=== PATIENT | female | born 1950 | race Caucasian/White ===

== ENCOUNTER 2017-09-21 23:58 | Emergency (ER) | payer MEDICARE, OTHER ==
[2017-09-22 00:07] VITALS: BP 159/82
[2017-09-22] MEDS ORDERED: LORazepam 2 MG/ML SDV IM ONE (00:37)
--- NOTE | 2017-09-22 00:45 | EDM.PDOC ---
ED HPI GENERAL MEDICAL PROBLEM - General Chief Complaint: General Stated Complaint: shaky, congested, headache Time Seen by Provider: 09/22/17 00:27 Source of Information: Reports: Patient, RN, RN Notes Reviewed History Limitations: Reports: No Limitations - History of Present Illness INITIAL COMMENTS - FREE TEXT/NARRATIVE: Patient presents to the ED at [facility] with increased worsening of essential tremors, headache, and sinus congestion. She states she has been on Primidone for a long time and is at the max dose. She states it does not feel like the Primidone is working anymore. She feels "more warm" than usual. She states she used some nasal spray for her "plugged sinuses." Otherwise, no concerns. Duration: Chronic Headache Pain Score (Numeric/FACES): 8 - Related Data Allergies Allergy/AdvReac Type Severity Reaction Status Date / Time lisinopril Allergy Cough Verified 09/22/17 00:00 Home Meds: Home Meds Aspirin [Iris Chewable Aspirin] 81 mg PO DAILY 10/02/15 [History] Primidone [Mysoline] 300 mg PO TID 10/02/15 [History] atorvaSTATin [Lipitor] 20 mg PO BEDTIME 10/02/15 [History] Ascorbic Acid [C Complex] 1,000 mg PO DAILY 01/06/16 [History] Calcium Carb/Vit D3/Minerals [Calcium 600+D Plus Minerals] 1 tab PO DAILY [History] Cholecalciferol (Vitamin D3) [Vitamin D3] 2,000 units PO DAILY 01/06/16 [History ] Fish Oil/[place]-3 Fatty Acids [Fish Oil 1,000 MG] 1,000 mg PO DAILY 01/06/16 [ History] LORazepam [Ativan] 0.5 mg PO TID PRN 01/06/16 [History] Losartan [Cozaar] 50 mg PO DAILY 01/06/16 [History] Lutein 20 mg DAILY 01/06/16 [History] Multivit-Min/Iron Fum/Folic AC [[place]k-Forkxmd-Dtjwsuvh Tablet] 1 tab PO DAILY [History] Tetrahydrozoline HCl [Visine] 1 drop EYEBOTH Q4H PRN 01/06/16 [History] Venlafaxine HCl [Venlafaxine ER] 75 mg PO DAILY 01/06/16 [History] metFORMIN [Glucophage] 2,000 mg PO DAILY 09/22/17 [History] Past Medical History HEENT History: Reports: Cataract Other HEENT History: lingual tonsil hypertrophy. presbyopia. astigmatism. hypermetropia Cardiovascular History: Reports: High Cholesterol, Hypertension Other Cardiovascular History: hypertensive heart disease without heart failure. ASCVD Respiratory History: Reports: COPD Gastrointestinal History: Reports: GERD, Irritable Bowel Syndrome Musculoskeletal History: Reports: Arthritis Other Musculoskeletal History: ulnar neuropathy at elbow of right upper extremity. cubital tunnel syndrome Neurological History: Reports: Neuropathy, Diabetic Other Neuro History: essential tremor. restless leg syndrome. R median nerve neuropathy Psychiatric History: Reports: Anxiety, Depression Other Psychiatric History: panic disorder without agoraphobia Endocrine/Metabolic History: Reports: Diabetes, Type II - Past Surgical History GI Surgical History: Reports: Cholecystectomy Female Surgical History: Reports: Breast Reduction, Section Musculoskeletal Surgical History: Reports: Carpal Tunnel Social & Family History - Tobacco Use Smoking Status *Q: Former Smoker Used Tobacco, but Quit: Yes Month/Year Tobacco Last Used: 7 years ago - Caffeine Use Caffeine Use: Reports: None ED ROS GENERAL - Review of Systems Review Of Systems: See Below Constitutional: Denies: Fever, Chills, Weakness Respiratory: Denies: Shortness of Breath, Cough Cardiovascular: Denies: Chest Pain, Palpitations Musculoskeletal: Denies: Muscle Pain, Muscle Stiffness Skin: Reports: No Symptoms Neurological: Reports: Headache, Tremors. Denies: Numbness, Paresthesia, Tingling ED EXAM, GENERAL - Physical Exam Exam: See Below Exam Limited By: No Limitations General Appearance: Alert, No Apparent Distress Nose: Normal Inspection Head: Atraumatic, Normocephalic Respiratory/Chest: No Respiratory Distress, Lungs Clear, Normal Breath Sounds Cardiovascular: Normal Peripheral Pulses, Regular Rate, Rhythm Neurological: Alert, Oriented, Normal Cognition Skin Exam: Warm, Dry, Intact, Normal Color Course - Vital Signs Last Recorded V/S: Last Vital Signs Temp 35.9 C 09/22/17 00:01 Pulse 76 09/22/17 00:01 Resp 20 09/22/17 00:01 BP 159/82 H 09/22/17 00:01 Pulse Ox 97 09/22/17 00:01 - Orders/Labs/Meds Meds: Medications Discontinued Medications Generic Name Dose Route Start Last Admin Trade Name Freq PRN Reason Stop Dose Admin Lorazepam 2 mg 09/22/17 00:37 Ativan IM 09/22/17 00:38 STAT ONE Departure - Departure Time of Disposition: 00:45 Disposition: Home, Self-Care 01 Condition: Good Clinical Impression: Tremors of nervous system - Discharge Information *PRESCRIPTION DRUG MONITORING PROGRAM REVIEWED*: Not Applicable *COPY OF PRESCRIPTION DRUG MONITORING REPORT IN PATIENT OLGA: Not Applicable Instructions: Tremor Referrals: Marci Hendricks MD [Physician] - - Problem List Review Problem List Initiated/Reviewed/Updated: Yes - Assessment/Plan Assessment:: Tremors Plan: No acute emergency appreciated in this case. Patient seems to be bother by her tremors and feels she can not get them under control. Recommend she make an appointment to see Dr. Marci Hendricks. No changes with medications at this time.
== END 2017-09-22 00:55 | disposition home or self-care (01) ==
LOC: VM.ED 23:58
DX: R25.1 Tremor, unspecified (principal); E78.00 Pure hypercholesterolemia, unspecified; I11.0 Hypertensive heart disease with heart failure; I50.9 Heart failure, unspecified; J44.9 Chronic obstructive pulmonary disease, unspecified; F32.9 Major depressive disorder, single episode, unspecified; E11.9 Type 2 diabetes mellitus without complications; F41.9 Anxiety disorder, unspecified; Z88.8 Allergy status to other drugs, medicaments and biological substances; Z79.899 Other long term (current) drug therapy; Z79.82 Long term (current) use of aspirin; Z87.891 Personal history of nicotine dependence
CPT/HCPCS: 96372; 99283; J2060

== ENCOUNTER 2020-08-13 09:12 | Emergency (ER) | payer MEDICARE, OTHER ==
[2020-08-13] MEDS ORDERED: Ondansetron 4 MG/2 ML SDV IVPUSH ONE (09:36)
[2020-08-13] MEDS ORDERED: Acetaminophen 325 MG Tab PO ONE (09:46)
--- NOTE | 2020-08-13 09:46 | EDM.PDOC ---
ED HPI GENERAL MEDICAL PROBLEM - General Chief Complaint: Headache Stated Complaint: headache/dizziness Time Seen by Provider: 08/13/20 09:20 Source of Information: Reports: Patient History Limitations: Reports: No Limitations - History of Present Illness INITIAL COMMENTS - FREE TEXT/NARRATIVE: Alise is a 70 year old female who presents to ER with complaints of dizziness, headache and nausea. States awoke this am with the dizziness. Describes as a nauseating feeling that worsens with lying down. She has a dull throbbing headache that rates at a 9/10. After resting here, with my evaluation, dizziness is gone but nausea and headache are still present. Has had dizziness like this in the past, happened 6 months ago. Treated with an antinausea pill. Did try that this am but did not give much relief. Has been feeling short of breath for 2 months. States has had a chest xray and "lung tests" that were negative. Also has diabetes. Takes metformin at bedtime. Did note diaphoresis this am and thought possibly related to her diabetes so she ate a peach. Did not check her blood sugar at that time. Also has history of tremors. Had a deep brain stimulator put in and the tremors are now gone. Onset: Today, Sudden Duration: Minutes:, Hour(s):, Waxing/Waning Location: Reports: Head Quality: Reports: Ache Severity: Severe Improves with: Reports: Rest Associated Symptoms: Reports: Malaise, Nausea/Vomiting, Shortness of Breath. Denies: Confusion, Chest Pain, Cough, Fever/Chills, Loss of Appetite Treatments JOB RECRUITER: Reports: Other Medication(s) Other Treatments JOB RECRUITER: anti-nausea med - Related Data Allergies Allergy/AdvReac Type Severity Reaction Status Date / Time gabapentin Allergy Dizziness Verified 08/13/20 10:49 lisinopril Allergy Cough Verified 08/13/20 10:49 Home Meds: Home Meds Aspirin [Iris Chewable Aspirin] 81 mg PO BEDTIME 10/02/15 [History] Primidone [Mysoline] 150 mg PO TID 10/02/15 [History] Calcium Carb/Vit D3/Minerals [Calcium 600+D Plus Minerals] 1 tab PO BIDMEALS 01/06/16 [History] Cholecalciferol (Vitamin D3) [Vitamin D3] 2,000 units PO DAILY 01/06/16 [History] Lutein 20 mg PO Q48H 01/06/16 [History] Multivit-Min/Iron Fum/Folic AC [Scfgu-Fjbdokf-Lqjqyxxr Tablet] 1 tab PO DAILY 01/06/16 [History] Venlafaxine HCl [Venlafaxine ER] 187.5 mg PO DAILY 01/06/16 [History] metFORMIN [Glucophage] 2,000 mg PO DAILY 09/22/17 [History] Alendronate Sodium [Fosamax] 70 mg PO ASDIRECTED 06/22/20 [History] Ascorbate Calcium [Vitamin C] 500 mg PO DAILY 06/22/20 [History] Cyanocobalamin (Vitamin B-12) [Vitamin B-12] 100 mcg PO DAILY 06/22/20 [History] Losartan [Cozaar] 12.5 mg PO DAILY 06/22/20 [History] Petrolatum,White [Aquaphor with Natural Healing] 1 applic TP QID PRN 06/22/20 [History] Turmeric 800 mg PO BEDTIME 06/22/20 [History] atorvaSTATin [Lipitor] 40 mg PO BEDTIME 06/22/20 [History] carvediloL [Coreg] 6.25 mg PO BID 06/22/20 [History] estradioL [Estrace Vaginal] 2 g VAG ASDIRECTED 06/22/20 [History] glipiZIDE [Glipizide ER] 5 mg PO DAILY 06/22/20 [History] oxyCODONE 5 - 10 mg PO Q6H PRN 06/22/20 [History] Past Medical History HEENT History: Reports: Cataract Other HEENT History: lingual tonsil hypertrophy. presbyopia. astigmatism. hypermetropia Cardiovascular History: Reports: High Cholesterol, Hypertension Other Cardiovascular History: hypertensive heart disease without heart failure. aneurysm. ASCVD Respiratory History: Reports: COPD Gastrointestinal History: Reports: GERD, Irritable Bowel Syndrome Genitourinary History: Reports: Other (See Below) Other Genitourinary History: acute kidney injury Musculoskeletal History: Reports: Arthritis, Fracture, Osteoarthritis, Osteoporosis Other Musculoskeletal History: ulnar neuropathy at elbow of right upper extremity. cubital tunnel syndrome. radial styloid tenosynovitis of right hand. trigger middle finger of right hand. 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 compression fracture of body of thoracic vertebra Neurological History: Reports: Neuropathy, Diabetic Other Neuro History: essential tremor. restless leg syndrome. R median nerve neuropathy. insomnia. right median nerve neuropathy. lumbar nerve root impingement. encephalomalacia on imaging study Psychiatric History: Reports: Anxiety, Depression Other Psychiatric History: panic disorder without agoraphobia Endocrine/Metabolic History: Reports: Diabetes, Type II - Past Surgical History HEENT Surgical History: Reports: Cataract Surgery, Tonsillectomy Respiratory Surgical History: Reports: Other (See Below) Other Respiratory Surgeries/Procedures: panendoscopy GI Surgical History: Reports: Cholecystectomy Other GI Surgeries/Procedures: stomach surgery as a baby Female Surgical History: Reports: Breast Reduction, Section Neurological Surgical History: Reports: Other (See Below) Other Neurological Surgeries/Procedures: deep brain stimulator placement Musculoskeletal Surgical History: Reports: Carpal Tunnel Other Musculoskeletal Surgeries/Procedures:: trigger finger release. Elbow surgery. 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 Denies: Fever, Chills, Decreased Appetite HEENT: Reports: Rhinitis, Vertigo. Denies: Ear Pain, Throat Pain, Vision Change Respiratory: Reports: Shortness of Breath Cardiovascular: Denies: Chest Pain, Edema, Lightheadedness Endocrine: Reports: Fatigue GI/Abdominal: Reports: Nausea. Denies: Abdominal Pain, Constipation, Diarrhea, Vomiting : Reports: No Symptoms Musculoskeletal: Reports: No Symptoms Skin: Reports: No Symptoms Neurological: Reports: Dizziness, Headache ED EXAM, DIZZINESS - Physical Exam Exam: See Below Exam Limited By: No Limitations General Appearance: Alert, WD/WN, No Apparent Distress Eye Exam: Bilateral Eye: EOMI, PERRL Nystagmus: No: reproducible Ears: Normal External Exam, Normal TMs Nose: Normal Inspection, Normal Mucosa, No Blood Throat/Mouth: Normal Inspection, Normal Oropharynx Head Exam: Normocephalic Respiratory/Chest: No Respiratory Distress, Lungs Clear, Normal Breath Sounds Cardiovascular: Regular Rate, Rhythm Neurological: Alert, Normal Mood/Affect, Normal Dorsiflexion, CN II-XII Intact, Normal Plantar Flexion, Normal Gait, Normal Reflexes, No Motor/Sensory Deficits, Oriented x 3 Extremities: Normal Inspection, No Pedal Edema Skin Exam: Warm, Dry #1 Interpretation EKG Date: 08/13/20 Rhythm: NSR Buckner: Normal P-Wave: Present QRS: Normal ST-T: Normal Comparison: No Change Course - Vital Signs Last Recorded V/S: Last Vital Signs Temp Pulse Resp BP 202/96 H 08/13/20 10:40 Pulse Ox - Orders/Labs/Meds Orders: Active Orders 24 hr Category Date Time Status EKG 12 Lead [EKG Documentation Completion] [RC] AM Care 08/13/20 09:35 Active Sodium Chloride 0.9% [Normal Saline] 1,000 ml Med 08/13/20 10:00 Active IV ASDIRECTED Medication Orders Sodium Chloride (Normal Saline) 1,000 mls @ 150 mls/hr IV ASDIRECTED SMITH Last Admin: 08/13/20 09:55 Dose: 150 mls/hr Documented by: RC Labs: Laboratory Tests 08/13/20 08/13/20 08/13/20 Range/Units 09:25 09:25 09:25 WBC 6.0 (4.0-10.0) x10^3/uL RBC 4.30 (4.00-5.50) x10^6/uL Hgb 13.7 (12.0-16.0) g/dL Hct 41.3 (33.0-47.0) % MCV 96.0 H (78.0-93.0) fL MCH 31.9 (26.0-32.0) pg MCHC 33.2 (32.0-36.0) g/dL RDW Coeff of Errol 12.8 (10.0-15.0) % Plt Count 246 D (130-400) x10^3/uL Neut % (Auto) 80.7 H (50.0-80.0) % Lymph % (Auto) 14.4 L (25.0-50.0) % Brule % (Auto) 3.2 (2.0-11.0) % Eos % (Auto) 1.2 (0.0-4.0) % Baso % (Auto) 0.5 (0.2-1.2) % D-Dimer, Quantitative 0.24 (<=0.58) mg/LFEU Sodium 136 (136-145) mmol/L Potassium 4.9 (3.5-5.1) mmol/L Chloride 98 (98-107) mmol/L Carbon Dioxide 27 (21-32) mmol/L Anion Gap 15.9 H (5-15) mmol/L BUN 28 H (7-18) mg/dL Creatinine 1.2 H (0.55-1.02) mg/dL Est Cr Clr Drug Dosing TNP Estimated GFR (MDRD) 44 Glucose 331 H (70-99) mg/dL POC Glucose (70-99) mg/dL Calcium 8.7 (8.5-10.1) mg/dL Corrected Calcium 8.9 (8.5-10.1) mg/dL Total Bilirubin 0.3 (0.2-1.0) mg/dL AST 22 (15-37) U/L ALT 30 (14-59) U/L Alkaline Phosphatase 123 H (46-116) U/L Troponin I High Sens 5 (<=51) ng/L C-Reactive Protein 0.4 (<=0.9) mg/dL Total Protein 8.2 (6.4-8.2) g/dL Albumin 3.8 (3.4-5.0) g/dL Globulin 4.4 Albumin/Globulin Ratio 0.86 Urine Color (YELLOW) Urine Appearance (CLEAR) Urine pH (5.0-8.0) Ur Specific [place] Urine Protein (NEGATIVE) mg/dL Urine Glucose (UA) (NEGATIVE) mg/dL Urine Ketones (NEGATIVE) mg/dL Urine Occult Blood (NEGATIVE) Urine Nitrite (NEGATIVE) Urine Bilirubin (NEGATIVE) Urine Urobilinogen (0.2) EU/dL Ur Leukocyte Esterase (NEGATIVE) Urine RBC (NOT SEEN) /HPF Urine WBC (NOT SEEN) /HPF Ur Squamous Epith Cells (NOT SEEN) /HPF Urine Bacteria (NOT SEEN) /HPF Urine Mucus (NOT SEEN) /LPF 08/13/20 08/13/20 Range/Units 09:30 10:25 WBC (4.0-10.0) x10^3/uL RBC (4.00-5.50) x10^6/uL Hgb (12.0-16.0) g/dL Hct (33.0-47.0) % MCV (78.0-93.0) fL MCH (26.0-32.0) pg MCHC (32.0-36.0) g/dL RDW Coeff of Errol (10.0-15.0) % Plt Count (130-400) x10^3/uL Neut % (Auto) (50.0-80.0) % Lymph % (Auto) (25.0-50.0) % Brule % (Auto) (2.0-11.0) % Eos % (Auto) (0.0-4.0) % Baso % (Auto) (0.2-1.2) % D-Dimer, Quantitative (<=0.58) mg/LFEU Sodium (136-145) mmol/L Potassium (3.5-5.1) mmol/L Chloride (98-107) mmol/L Carbon Dioxide (21-32) mmol/L Anion Gap (5-15) mmol/L BUN (7-18) mg/dL Creatinine (0.55-1.02) mg/dL Est Cr Clr Drug Dosing Estimated GFR (MDRD) Glucose (70-99) mg/dL POC Glucose 306 H (70-99) mg/dL Calcium (8.5-10.1) mg/dL Corrected Calcium (8.5-10.1) mg/dL Total Bilirubin (0.2-1.0) mg/dL AST (15-37) U/L ALT (14-59) U/L Alkaline Phosphatase (46-116) U/L Troponin I High Sens (<=51) ng/L C-Reactive Protein (<=0.9) mg/dL Total Protein (6.4-8.2) g/dL Albumin (3.4-5.0) g/dL Globulin Albumin/Globulin Ratio Urine Color Yellow (YELLOW) Urine Appearance Clear (CLEAR) Urine pH 5.5 (5.0-8.0) Ur Specific [place] 1.025 Urine Protein 30 H (NEGATIVE) mg/dL Urine Glucose (UA) 500 H (NEGATIVE) mg/dL Urine Ketones 40 H (NEGATIVE) mg/dL Urine Occult Blood Small H (NEGATIVE) Urine Nitrite Negative (NEGATIVE) Urine Bilirubin Negative (NEGATIVE) Urine Urobilinogen 0.2 (0.2) EU/dL Ur Leukocyte Esterase Negative (NEGATIVE) Urine RBC 0-5 (NOT SEEN) /HPF Urine WBC 0-5 (NOT SEEN) /HPF Ur Squamous Epith Cells Occasional H (NOT SEEN) /HPF Urine Bacteria Rare (NOT SEEN) /HPF Urine Mucus Rare H (NOT SEEN) /LPF Meds: Medications Generic Name Dose Route Start Last Admin Trade Name Freq PRN Reason Stop Dose Admin Sodium Chloride 1,000 mls @ 150 mls/hr 08/13/20 10:00 08/13/20 09:55 Normal Saline IV 150 mls/hr ASDIRECTED SMITH Administration Discontinued Medications Generic Name Dose Route Start Last Admin Trade Name Sony PRN Reason Stop Dose Admin Acetaminophen 650 mg 08/13/20 09:46 08/13/20 10:00 Acetaminophen 325 Mg Tab PO 08/13/20 09:47 650 mg NOW ONE Administration Clonidine HCl 0.1 mg 08/13/20 10:36 08/13/20 10:40 Clonidine 0.1 Mg Tab PO 08/13/20 10:37 0.1 mg ONETIME ONE Administration Hydralazine HCl 10 mg 08/13/20 11:17 08/13/20 11:20 Hydralazine 20 Mg/Ml Sdv IVPUSH 08/13/20 11:18 10 mg ONETIME ONE Administration Ketorolac Tromethamine 30 mg 08/13/20 12:03 08/13/20 12:09 Ketorolac 30 Mg/Ml Sdv IVPUSH 08/13/20 12:04 30 mg ONETIME ONE Administration Ondansetron HCl 4 mg 08/13/20 09:36 08/13/20 09:40 Ondansetron 4 Mg/2 Ml Sdv IVPUSH 08/13/20 09:37 4 mg ONETIME ONE Administration - Re-Assessments/Exams Free Text/Narrative Re-Assessment/Exam: 08/13/20 10:33 Patient continues to have dull headache and sees "a bright light when closes her eyes". BUN is elevated. Due to that and nausea, IV fluids infusing. 08/13/20 11:20-Blood pressure remains high despite the clonidine. Hydralazine ordered. Has brief 1-2 second periods of what she describes as nauseating dull sensation to left side of head. 08/13/20 13:06 Toradol is helping to relieve her discomfort. Resting quietly. Blood pressure is improving. Discussed need to take her usual meds when she gets home to help control the blood pressure from rising. Departure - Departure Time of Disposition: 13:07 Disposition: Home, Self-Care 01 Condition: Fair Clinical Impression: Dizzy - Discharge Information *PRESCRIPTION DRUG MONITORING PROGRAM REVIEWED*: No *COPY OF PRESCRIPTION DRUG MONITORING REPORT IN PATIENT OLGA: No Referrals: Sosa Garcia DO [Primary Care Provider] - Forms: ED Department Discharge Additional Instructions: 1. Rest 2. Tylenol or ibuprofen for headache 3. Zofran 4 mg every 6 hours under the tongue for nausea 4. Take am meds when get home to help control the blood pressure 5. Follow up with Dr. Garcia for persisting concerns. Sepsis Event Note (ED) - Focused Exam Vital Signs: Vital Signs BP 08/13/20 10:40 202/96 H - My Orders Last 24 Hours: My Active Orders 08/13/20 09:35 EKG 12 Lead [EKG Documentation Completion] [RC] AM 08/13/20 10:00 Sodium Chloride 0.9% [Normal Saline] 1,000 ml IV ASDIRECTED - Assessment/Plan Last 24 Hours: My Active Orders 08/13/20 09:35 EKG 12 Lead [EKG Documentation Completion] [RC] AM 08/13/20 10:00 Sodium Chloride 0.9% [Normal Saline] 1,000 ml IV ASDIRECTED
[2020-08-13 09:58] LABS: CHLORIDE,CL 98 mmol/L (98-107); SODIUM,NA 136 mmol/L (136-145)
[2020-08-13 09:59] LABS: ANION GAP 15.9 mmol/L (5-15)
[2020-08-13] MEDS ORDERED: Sodium Chloride 0.9% 1,000 ML IV SCH (10:00)
[2020-08-13] MEDS ORDERED: cloNIDine 0.1 MG Tab PO ONE (10:36)
--- NOTE | 2020-08-13 10:54 | CT ---
[id number] CT/CT Head WO IV EXAM: CT Head WO IV CLINICAL DATA: HEADACHE/DIZZINESS. COMPARISON STUDY: CT an MRI examinations from April 2018. FINDINGS: Bilateral deep brain stimulators are in place. These were not present on examination performed April 2018. Stable area of encephalomalacia in the right occipital lobe. No change from the prior examination. No acute intracranial hemorrhage. No extra-axial fluid collection. No hydrocephalus. No CT evidence of acute intracranial ischemia. Calvarium intact. Hypoplastic bilateral maxillary sinuses, correlating with appearance on the prior examination. Findings are nonspecific and either sequela of chronic sinusitis versus congenital. Mastoid air cells middle ear cavities are clear. IMPRESSION: No acute intracranial findings. Placement of bilateral deep brain stimulator devices since the prior examination in 2018. Stable appearance of right occipital encephalomalacia. Toni Leblanc MD 08/13/20 1053 Thank you for allowing us to participate in the care of your patient.
[2020-08-13] MEDS ORDERED: hydrALAZINE 20 MG/ML SDV IVPUSH ONE (11:17)
[2020-08-13] MEDS ORDERED: Ketorolac 30 MG/ML SDV IVPUSH ONE (12:03)
[2020-08-13 22:26] VITALS: BP 172/90; PULSE 72
== END 2020-08-13 13:20 | disposition home or self-care (01) ==
LOC: VM.ED 09:12
DX: R42 Dizziness and giddiness (principal); E11.40 Type 2 diabetes mellitus with diabetic neuropathy, unspecified; E78.00 Pure hypercholesterolemia, unspecified; I11.9 Hypertensive heart disease without heart failure; J44.9 Chronic obstructive pulmonary disease, unspecified; Z79.82 Long term (current) use of aspirin; Z79.84 Long term (current) use of oral hypoglycemic drugs; Z88.5 Allergy status to narcotic agent; Z88.8 Allergy status to other drugs, medicaments and biological substances
CPT/HCPCS: 70450; 80053; 81001; 82947; 84484; 85025; 85379; 86140; 93005; 93010; 96374; 96375; 99284; 99284-25; A9270-GY; J0360; J1885; J2405; J7030

== ENCOUNTER 2021-10-17 15:46 | Emergency (ER) | payer MEDICARE, OTHER ==
[2021-10-17] MEDS ORDERED: Sodium Chloride 0.9% 10 ML Syringe FLUSH PRN (16:12)
[2021-10-17] MEDS ORDERED: Sodium Chloride 0.9% 1,000 ML IV ONE (16:12)
[2021-10-17] MEDS ORDERED: LORazepam 2 MG/ML SDV IVPUSH ONE (16:35)
[2021-10-17 16:46] LABS: ANION GAP 17.4 mmol/L (5-15)
[2021-10-17] MEDS ORDERED: Take Home: LORazepam 0.5 MG Tab, 2 Tab Pack PO ONE (18:08)
[2021-10-17] MEDS ORDERED: Take Home: Sulfamethoxazole/Trimethoprim 800-160 MG Tab, 2 Tab Pack PO ONE (18:15)
[2021-10-17 18:19] VITALS: BP 142/68; PULSE 78
== END 2021-10-17 18:40 | disposition home or self-care (01) ==
LOC: VM.ED 15:46
DX: I16.9 Hypertensive crisis, unspecified (principal); N39.0 Urinary tract infection, site not specified; N30.00 Acute cystitis without hematuria; I10 Essential (primary) hypertension; F41.9 Anxiety disorder, unspecified; E78.00 Pure hypercholesterolemia, unspecified; K21.9 Gastro-esophageal reflux disease without esophagitis; J44.9 Chronic obstructive pulmonary disease, unspecified; Z20.822 Contact with and (suspected) exposure to COVID-19; Z79.899 Other long term (current) drug therapy
CPT/HCPCS: 71045; 80053; 81001; 83605; 83735; 85025; 87086; 93005; 93010; 96361; 96374; 99284; A9270; J2060; J7030; U0002

== ENCOUNTER 2022-07-17 23:09 | Emergency (ER) | payer MEDICARE, OTHER ==
[2022-07-17 23:46] LABS: RBC,URINE POC >100 /HPF (NOT SEEN)
[2022-07-17 23:47] LABS: BACTERIA,URINE POC NOT SEEN (NOT SEEN); MUCUS,URINE POC NOT SEEN (NOT SEEN); SQUAMOUS EPITHELIAL CELLS,UR P NOT SEEN /HPF (NOT SEEN)
[2022-07-17] MEDS ORDERED: Take Home: Nitrofurantoin Monohydrate/Macrocrystalline 100 MG, 6 Cap Pack PO ONE (23:59)
[2022-07-18 05:14] VITALS: BP 118/71; PULSE 83
== END 2022-07-18 00:03 | disposition home or self-care (01) ==
LOC: VM.ED 23:09
DX: N30.00 Acute cystitis without hematuria (principal); E78.00 Pure hypercholesterolemia, unspecified; I11.9 Hypertensive heart disease without heart failure; J44.9 Chronic obstructive pulmonary disease, unspecified; M19.90 Unspecified osteoarthritis, unspecified site; E11.40 Type 2 diabetes mellitus with diabetic neuropathy, unspecified; Z88.8 Allergy status to other drugs, medicaments and biological substances; Z79.899 Other long term (current) drug therapy; Z79.84 Long term (current) use of oral hypoglycemic drugs
CPT/HCPCS: 81015; 87086; 99283; 99284; A9270

== ENCOUNTER 2023-02-07 13:25 | Inpatient (IN) | payer MEDICARE, OTHER ==
[2023-02-07] MEDS ORDERED: Sodium Chloride 0.9% 10 ML Syringe FLUSH PRN (13:43)
[2023-02-07] MEDS ORDERED: Albuterol/Ipratropium 3.0-0.5 MG/3 ML Neb Soln NEB ONE (14:00)
[2023-02-07 14:04] LABS: BASOPHILS PERCENT AUTO 0.2 % (0.2-1.2); EOSINOPHILS ABSOLUTE AUTO 0.1 x10^3/uL (0.0-0.5); EOSINOPHILS PERCENT AUTO 0.3 % (0.0-4.0); HEMATOCRIT 38.9 % (33.0-47.0); HEMOGLOBIN 12.5 g/dL (12.0-16.0); IMMATURE GRAN ABSOLUTE AUTO 0.13 x10^3/uL (0.00-0.07); LYMPHOCYTES ABSOLUTE AUTO 1.9 x10^3/uL (1.0-4.8); LYMPHOCYTES PERCENT AUTO 12.2 % (25.0-50.0); MEAN CORPUSCULAR HEMOGLOBIN 30.3 pg (26.0-32.0); MEAN CORPUSCULAR HGB CONC 32.1 g/dL (32.0-36.0); MEAN CORPUSCULAR VOLUME 94.2 fL (78.0-93.0); MONOCYTES ABSOLUTE AUTO 0.9 x10^3/uL (0.0-0.8); MONOCYTES PERCENT AUTO 5.7 % (2.0-11.0); NEUTROPHILS ABSOLUTE AUTO 12.8 x10^3/uL (1.8-7.7); NEUTROPHILS PERCENT AUTO 80.8 % (50.0-80.0); PLATELET COUNT,PLT 354 x10^3/uL (130-400); RED BLOOD CELL COUNT 4.13 x10^6/uL (4.00-5.50); WHITE BLOOD CELL COUNT,WBC 15.9 x10^3/uL (4.0-10.0)
[2023-02-07 14:28] LABS: A/G RATIO 0.55; ALANINE AMINOTRANSFERASE,ALT 31 U/L (14-59); ALBUMIN 2.8 g/dL (3.4-5.0); ALKALINE PHOSPHATASE 79 U/L (46-116); ASPARTATE AMNIOTRANSFERASE,AST 19 U/L (15-37); BILIRUBIN TOTAL 0.4 mg/dL (0.2-1.0); BLOOD UREA NITROGEN,BUN 32 mg/dL (7-18); CARBON DIOXIDE,CO2 25 mmol/L (21-32); CHLORIDE,CL 94 mmol/L (98-107); CREATININE 1.7 mg/dL (0.55-1.02); GLUCOSE RANDOM 336 mg/dL (70-99); POTASSIUM,K 5.8 mmol/L (3.5-5.1); PRO B-TYPE NATRIUR PEPT,BNPPRO 286 pg/mL (<=125); PROTEIN TOTAL,TP 7.9 g/dL (6.4-8.2); SODIUM,NA 132 mmol/L (136-145)
[2023-02-07 14:31] LABS: ANION GAP 18.8 mmol/L (5-15); ESTIMATED GFR 31 mL/min (>=60)
[2023-02-07] MEDS: Doxycycline Monohydrate 100 MG Cap PO SCH ×2 (15:00→20:46)
[2023-02-07] MEDS: methylPREDNISolone Sodium Succinate 40 MG/1 ML SDV IVPUSH SCH ×2 (15:20→20:30)
[2023-02-07] MEDS: cefTRIAXone 1 GM Vial IVPUSH SCH (15:25)
[2023-02-07] MEDS ORDERED: 50% Dextrose in Water 50 ML Syringe IVPUSH PRN (15:57)
[2023-02-07] MEDS ORDERED: Glucagon,Human Recombinant 1 MG Vial IM PRN (15:57)
[2023-02-07] MEDS ORDERED: tiZANidine 4 MG Tab PO PRN (16:00)
[2023-02-07] MEDS ORDERED: hydrOXYzine HCl 25 MG Tab PO PRN (16:00)
[2023-02-07 16:35] LABS: C-REACTIVE PROTEIN 17.2 mg/dL (<=0.50); POTASSIUM,K 4.5 mmol/L (3.5-5.1)
[2023-02-07] MEDS: Insulin Glarg,Human.Rec.Analog 100 Unit/ML 10 ML Vial SUBCUT SCH ×2 (17:44→20:45)
[2023-02-07] MEDS: Calcium Carbonate/Vitamin D3 1250 MG-5 MCG Tab PO SCH (17:47)
[2023-02-07] MEDS: Albuterol/Ipratropium 3.0-0.5 MG/3 ML Neb Soln NEB SCH ×2 (18:33→22:02)
[2023-02-07] MEDS: Primidone 50 MG Tab PO SCH (20:33)
[2023-02-07] MEDS: atorvaSTATin 40 MG Tab PO SCH (20:33)
[2023-02-07] MEDS: LORazepam 1 MG Tab PO PRN (20:33)
[2023-02-07] MEDS: Carvedilol 6.25 MG Tab PO SCH (20:34)
[2023-02-08] MEDS: Enoxaparin 40 MG/0.4 ML Syringe SUBCUT SCH (03:36)
[2023-02-08] MEDS: Albuterol/Ipratropium 3.0-0.5 MG/3 ML Neb Soln NEB SCH ×3 (03:36→10:45)
[2023-02-08 07:15] LABS: BASOPHILS PERCENT AUTO 0.1 % (0.2-1.2); EOSINOPHILS PERCENT AUTO 0.2 % (0.0-4.0); HEMATOCRIT 37.4 % (33.0-47.0); HEMOGLOBIN 12.3 g/dL (12.0-16.0); IMMATURE GRAN ABSOLUTE AUTO 0.12 x10^3/uL (0.00-0.07); LYMPHOCYTES ABSOLUTE AUTO 2.2 x10^3/uL (1.0-4.8); LYMPHOCYTES PERCENT AUTO 14.1 % (25.0-50.0); MEAN CORPUSCULAR HEMOGLOBIN 30.6 pg (26.0-32.0); MEAN CORPUSCULAR HGB CONC 32.9 g/dL (32.0-36.0); MONOCYTES ABSOLUTE AUTO 0.9 x10^3/uL (0.0-0.8); MONOCYTES PERCENT AUTO 5.5 % (2.0-11.0); NEUTROPHILS ABSOLUTE AUTO 12.6 x10^3/uL (1.8-7.7); NEUTROPHILS PERCENT AUTO 79.3 % (50.0-80.0); PLATELET COUNT,PLT 375 x10^3/uL (130-400); RED BLOOD CELL COUNT 4.02 x10^6/uL (4.00-5.50); WHITE BLOOD CELL COUNT,WBC 15.9 x10^3/uL (4.0-10.0)
[2023-02-08] MEDS: Arformoterol 15 MCG/2 ML Neb Soln NEB SCH ×2 (07:19→20:55)
[2023-02-08 07:31] LABS: CALCIUM 9.4 mg/dL (8.5-10.1); CREATININE 1.4 mg/dL (0.55-1.02); EST CRCL DRUG DOSING (CG) 33.5 mL/min; POTASSIUM,K 4.9 mmol/L (3.5-5.1)
[2023-02-08 07:33] LABS: ANION GAP 14.9 mmol/L (5-15)
[2023-02-08] MEDS ORDERED: Glucagon,Human Recombinant 1 MG Vial IM PRN (08:01)
[2023-02-08] MEDS ORDERED: 50% Dextrose in Water 50 ML Syringe IVPUSH PRN (08:01)
[2023-02-08] MEDS: methylPREDNISolone Sodium Succinate 40 MG/1 ML SDV IVPUSH SCH ×2 (08:26→20:54)
[2023-02-08] MEDS: Primidone 50 MG Tab PO SCH ×2 (08:26→20:54)
[2023-02-08] MEDS: Multivitamin Tab PO SCH (08:27)
[2023-02-08] MEDS: Venlafaxine 75 MG Cap.ER PO SCH ×2 (08:27→09:37)
[2023-02-08] MEDS: Doxycycline Monohydrate 100 MG Cap PO SCH ×2 (08:27→20:54)
[2023-02-08] MEDS: Ascorbic Acid 500 MG Tab PO SCH (08:27)
[2023-02-08] MEDS: glipiZIDE 5 MG Tab.ER PO SCH (08:28)
[2023-02-08] MEDS: Cholecalciferol (Vitamin D3) 25 MCG Tab PO SCH (08:28)
[2023-02-08] MEDS: cefTRIAXone 1 GM Vial IVPUSH SCH (08:28)
[2023-02-08] MEDS: Calcium Carbonate/Vitamin D3 1250 MG-5 MCG Tab PO SCH ×2 (08:29→18:20)
[2023-02-08] MEDS: Insulin Glarg,Human.Rec.Analog 100 Unit/ML 10 ML Vial SUBCUT SCH ×2 (08:30→20:57)
[2023-02-08] MEDS: Carvedilol 6.25 MG Tab PO SCH ×2 (08:30→20:54)
[2023-02-08] MEDS ORDERED: [UNRECOGNIZED DRUG - OTHER] TOP PRN (09:29)
[2023-02-08] MEDS: Venlafaxine 150 MG Cap.ER PO SCH (10:20)
[2023-02-08] MEDS: Venlafaxine 37.5 MG Cap.ER PO SCH (10:20)
[2023-02-08] MEDS: metFORMIN 500 MG Tab PO SCH (11:21)
[2023-02-08] MEDS: Insulin Lispro 100 Units/ML 3 ML Vial SUBCUT SCH ×2 (11:21→18:18)
[2023-02-08] MEDS: Albuterol/Ipratropium 3.0-0.5 MG/3 ML Neb Soln NEB PRN (14:43)
[2023-02-08] MEDS: LORazepam 1 MG Tab PO PRN (20:54)
[2023-02-08] MEDS: atorvaSTATin 40 MG Tab PO SCH (20:54)
[2023-02-09] MEDS: Enoxaparin 40 MG/0.4 ML Syringe SUBCUT SCH (01:01)
[2023-02-09] MEDS: Arformoterol 15 MCG/2 ML Neb Soln NEB SCH ×2 (07:10→21:28)
[2023-02-09 07:21] LABS: BASOPHILS PERCENT AUTO 0.2 % (0.2-1.2); EOSINOPHILS ABSOLUTE AUTO 0.1 x10^3/uL (0.0-0.5); EOSINOPHILS PERCENT AUTO 0.6 % (0.0-4.0); HEMOGLOBIN 11.4 g/dL (12.0-16.0); LYMPHOCYTES ABSOLUTE AUTO 2.8 x10^3/uL (1.0-4.8); LYMPHOCYTES PERCENT AUTO 22.5 % (25.0-50.0); MEAN CORPUSCULAR HEMOGLOBIN 30.6 pg (26.0-32.0); MEAN CORPUSCULAR HGB CONC 32.6 g/dL (32.0-36.0); MEAN CORPUSCULAR VOLUME 93.8 fL (78.0-93.0); MONOCYTES ABSOLUTE AUTO 0.7 x10^3/uL (0.0-0.8); MONOCYTES PERCENT AUTO 5.8 % (2.0-11.0); NEUTROPHILS ABSOLUTE AUTO 8.9 x10^3/uL (1.8-7.7); NEUTROPHILS PERCENT AUTO 70.1 % (50.0-80.0); PLATELET COUNT,PLT 357 x10^3/uL (130-400); RED BLOOD CELL COUNT 3.73 x10^6/uL (4.00-5.50); WHITE BLOOD CELL COUNT,WBC 12.6 x10^3/uL (4.0-10.0)
[2023-02-09 07:32] LABS: CALCIUM 9.4 mg/dL (8.5-10.1); CREATININE 1.2 mg/dL (0.55-1.02); EST CRCL DRUG DOSING (CG) 39.09 mL/min
[2023-02-09] MEDS: cefTRIAXone 1 GM Vial IVPUSH SCH (09:38)
[2023-02-09] MEDS: Multivitamin Tab PO SCH (09:38)
[2023-02-09] MEDS: Ascorbic Acid 500 MG Tab PO SCH (09:38)
[2023-02-09] MEDS: Doxycycline Monohydrate 100 MG Cap PO SCH ×2 (09:39→21:26)
[2023-02-09] MEDS: Cholecalciferol (Vitamin D3) 25 MCG Tab PO SCH (09:39)
[2023-02-09] MEDS: Carvedilol 6.25 MG Tab PO SCH ×2 (09:40→21:26)
[2023-02-09] MEDS: glipiZIDE 5 MG Tab.ER PO SCH (09:40)
[2023-02-09] MEDS: Primidone 50 MG Tab PO SCH ×2 (09:45→21:27)
[2023-02-09] MEDS: metFORMIN 500 MG Tab PO SCH (09:46)
[2023-02-09] MEDS: methylPREDNISolone Sodium Succinate 40 MG/1 ML SDV IVPUSH SCH ×2 (09:47→21:27)
[2023-02-09] MEDS: Venlafaxine 150 MG Cap.ER PO SCH (09:47)
[2023-02-09] MEDS: Venlafaxine 37.5 MG Cap.ER PO SCH (09:47)
[2023-02-09] MEDS: Calcium Carbonate/Vitamin D3 1250 MG-5 MCG Tab PO SCH ×2 (09:47→17:58)
[2023-02-09] MEDS: Insulin Glarg,Human.Rec.Analog 100 Unit/ML 10 ML Vial SUBCUT SCH ×2 (09:56→22:29)
[2023-02-09] MEDS: Insulin Lispro 100 Units/ML 3 ML Vial SUBCUT SCH ×3 (09:58→17:58)
[2023-02-09] MEDS: Albuterol/Ipratropium 3.0-0.5 MG/3 ML Neb Soln NEB PRN (11:38)
[2023-02-09] MEDS: atorvaSTATin 40 MG Tab PO SCH (21:26)
[2023-02-10] MEDS: Enoxaparin 40 MG/0.4 ML Syringe SUBCUT SCH (00:27)
[2023-02-10] MEDS: LORazepam 1 MG Tab PO PRN (01:11)
[2023-02-10 05:00] VITALS: PULSE 80
[2023-02-10] MEDS: Arformoterol 15 MCG/2 ML Neb Soln NEB SCH (07:13)
[2023-02-10 07:34] LABS: BASOPHILS PERCENT AUTO 0.1 % (0.2-1.2); EOSINOPHILS ABSOLUTE AUTO 0.1 x10^3/uL (0.0-0.5); EOSINOPHILS PERCENT AUTO 0.6 % (0.0-4.0); HEMATOCRIT 34.5 % (33.0-47.0); HEMOGLOBIN 11.1 g/dL (12.0-16.0); IMMATURE GRAN ABSOLUTE AUTO 0.12 x10^3/uL (0.00-0.07); LYMPHOCYTES ABSOLUTE AUTO 2.6 x10^3/uL (1.0-4.8); MEAN CORPUSCULAR HEMOGLOBIN 30.5 pg (26.0-32.0); MEAN CORPUSCULAR HGB CONC 32.2 g/dL (32.0-36.0); MEAN CORPUSCULAR VOLUME 94.8 fL (78.0-93.0); MONOCYTES ABSOLUTE AUTO 0.6 x10^3/uL (0.0-0.8); MONOCYTES PERCENT AUTO 5.3 % (2.0-11.0); NEUTROPHILS ABSOLUTE AUTO 7.8 x10^3/uL (1.8-7.7); NEUTROPHILS PERCENT AUTO 69.9 % (50.0-80.0); PLATELET COUNT,PLT 395 x10^3/uL (130-400); RED BLOOD CELL COUNT 3.64 x10^6/uL (4.00-5.50); WHITE BLOOD CELL COUNT,WBC 11.1 x10^3/uL (4.0-10.0)
[2023-02-10 07:58] LABS: A/G RATIO 0.52; ALBUMIN 2.3 g/dL (3.4-5.0); ANION GAP 13.7 mmol/L (5-15); BILIRUBIN TOTAL 0.2 mg/dL (0.2-1.0); CREATININE 1.2 mg/dL (0.55-1.02); EST CRCL DRUG DOSING (CG) 39.09 mL/min; POTASSIUM,K 4.7 mmol/L (3.5-5.1); PROTEIN TOTAL,TP 6.7 g/dL (6.4-8.2)
[2023-02-10] MEDS ORDERED: methylPREDNISolone Sodium Succinate 40 MG/1 ML SDV IVPUSH SCH (09:00)
[2023-02-10] MEDS: metFORMIN 500 MG Tab PO SCH (09:40)
[2023-02-10] MEDS: glipiZIDE 5 MG Tab.ER PO SCH (09:42)
[2023-02-10] MEDS: Venlafaxine 37.5 MG Cap.ER PO SCH (09:42)
[2023-02-10] MEDS: Ascorbic Acid 500 MG Tab PO SCH (09:42)
[2023-02-10] MEDS: Multivitamin Tab PO SCH (09:42)
[2023-02-10] MEDS: Primidone 50 MG Tab PO SCH (09:43)
[2023-02-10] MEDS: Venlafaxine 150 MG Cap.ER PO SCH (09:43)
[2023-02-10] MEDS: Calcium Carbonate/Vitamin D3 1250 MG-5 MCG Tab PO SCH (09:43)
[2023-02-10] MEDS: Cholecalciferol (Vitamin D3) 25 MCG Tab PO SCH (09:43)
[2023-02-10] MEDS: Doxycycline Monohydrate 100 MG Cap PO SCH (09:43)
[2023-02-10] MEDS ORDERED: predniSONE 20 MG Tab PO SCH (09:45)
[2023-02-10] MEDS: Carvedilol 6.25 MG Tab PO SCH (09:46)
[2023-02-10] MEDS: cefTRIAXone 1 GM Vial IVPUSH SCH (10:03)
[2023-02-10] MEDS: Insulin Glarg,Human.Rec.Analog 100 Unit/ML 10 ML Vial SUBCUT SCH (10:04)
[2023-02-10 10:36] VITALS: BP 149/71
[2023-02-10] MEDS: Insulin Lispro 100 Units/ML 3 ML Vial SUBCUT SCH (11:55)
[2023-02-10] MEDS ORDERED: Insulin Lispro 100 Units/ML 3 ML Vial SUBCUT SCH (12:00)
[2023-02-11] MEDS ORDERED: Cefuroxime 250 MG Tab PO SCH (09:00)
== END 2023-02-10 12:25 | disposition home or self-care (01) | DRG 190 ==
LOC: VM.MS 13:25
PROVIDERS: ADMIT Internal Medicine; ATTEND Internal Medicine
DX: J44.1 Chronic obstructive pulmonary disease with (acute) exacerbation (principal); J18.9 Pneumonia, unspecified organism; E46 Unspecified protein-calorie malnutrition; E87.1 Hypo-osmolality and hyponatremia; B97.4 Respiratory syncytial virus as the cause of diseases classified elsewhere; N18.9 Chronic kidney disease, unspecified; E11.65 Type 2 diabetes mellitus with hyperglycemia; E11.22 Type 2 diabetes mellitus with diabetic chronic kidney disease; I12.9 Hypertensive chronic kidney disease with stage 1 through stage 4 chronic kidney disease, or unspecified chronic kidney disease; F41.9 Anxiety disorder, unspecified; F32.A Depression, unspecified; E78.5 Hyperlipidemia, unspecified; G47.00 Insomnia, unspecified; K21.9 Gastro-esophageal reflux disease without esophagitis; E87.5 Hyperkalemia; G25.0 Essential tremor; M81.0 Age-related osteoporosis without current pathological fracture; Z88.8 Allergy status to other drugs, medicaments and biological substances; Z86.73 Personal history of transient ischemic attack (TIA), and cerebral infarction without residual deficits; Z79.84 Long term (current) use of oral hypoglycemic drugs; Z79.899 Other long term (current) drug therapy; Z90.49 Acquired absence of other specified parts of digestive tract; Z90.89 Acquired absence of other organs; Z98.41 Cataract extraction status, right eye; Z98.42 Cataract extraction status, left eye
CPT/HCPCS: 36415; 80048; 80053; 82947; 83880; 84132; 85025; 86140; 87070; 87205; 94640; 94667; 94668; 94760; 97161-GP; A9270-GY; J0696; J1650; J1815-GY; J2920; J3490; J7512; J7620-GY

== ENCOUNTER 2024-04-20 11:12 | Emergency (ER) | payer MEDICARE, OTHER ==
[2024-04-20 11:32] VITALS: BP 156/87; PULSE 118
[2024-04-20 11:32] LABS: APPEARANCE,URINE CLEAR (CLEAR); BILIRUBIN,URINE SMALL (NEGATIVE); COLOR,URINE YELLOW (YELLOW); GLUCOSE,URINE 100 mg/dL (NEGATIVE); KETONES,URINE 80 mg/dL (NEGATIVE); LEUKOCYTE ESTERASE,URINE TRACE (NEGATIVE); NITRITE,URINE NEGATIVE (NEGATIVE); OCCULT BLOOD,URINE MODERATE (NEGATIVE); PH,URINE 5.5 (5.0-8.0); PROTEIN,URINE 100 mg/dL (NEGATIVE); UROBILINOGEN,URINE 0.2 EU/dL (0.2)
[2024-04-20 11:37] LABS: BACTERIA,URINE RARE /HPF (NOT SEEN); SQUAMOUS EPITHELIAL CELLS,UR FEW /HPF (NOT SEEN); WBC,URINE 0-5 /HPF (NOT SEEN)
[2024-04-20] MEDS ORDERED: Sodium Chloride 0.9% 10 ML Syringe FLUSH PRN (11:48)
[2024-04-20 12:03] LABS: BASOPHILS PERCENT AUTO 0.1 % (0.2-1.2); EOSINOPHILS PERCENT AUTO 0.3 % (0.0-4.0); HEMATOCRIT 41.1 % (33.0-47.0); HEMOGLOBIN 13.6 g/dL (12.0-16.0); IMMATURE GRAN ABSOLUTE AUTO 0.01 x10^3/uL (0.00-0.07); LYMPHOCYTES PERCENT AUTO 10.9 % (25.0-50.0); MEAN CORPUSCULAR HEMOGLOBIN 30.4 pg (26.0-32.0); MEAN CORPUSCULAR HGB CONC 33.1 g/dL (32.0-36.0); MEAN CORPUSCULAR VOLUME 91.7 fL (78.0-93.0); MONOCYTES ABSOLUTE AUTO 0.8 x10^3/uL (0.0-0.8); MONOCYTES PERCENT AUTO 9.1 % (2.0-11.0); NEUTROPHILS PERCENT AUTO 79.5 % (50.0-80.0); PLATELET COUNT,PLT 208 x10^3/uL (130-400); RED BLOOD CELL COUNT 4.48 x10^6/uL (4.00-5.50); WHITE BLOOD CELL COUNT,WBC 8.8 x10^3/uL (4.0-10.0)
[2024-04-20] MEDS: Ketorolac 15 MG/ML SDV IVPUSH ONE (12:03)
[2024-04-20] MEDS: cefTRIAXone 2 GM Vial IVPUSH ONE (12:06)
[2024-04-20 12:28] LABS: A/G RATIO 0.77; ALBUMIN 3.3 g/dL (3.4-5.0); BILIRUBIN TOTAL 0.5 mg/dL (0.2-1.0); C-REACTIVE PROTEIN 7.64 mg/dL (<=0.50); CALCIUM 8.9 mg/dL (8.5-10.1); CREATININE 1.2 mg/dL (0.55-1.02); EST CRCL DRUG DOSING (CG) 38.5 mL/min; PROTEIN TOTAL,TP 7.6 g/dL (6.4-8.2)
[2024-04-20] MEDS: Sodium Chloride 0.9% 1,000 ML IV ONE (13:30)
[2024-04-20] MEDS: Take Home: Ciprofloxacin 500 MG Tab, 2 Tab Pack PO ONE (13:34)
[2024-04-20] MEDS: Take Home: Acetaminophen/oxyCODONE 325-5 MG, 5 Tab Pack PO ONE (14:13)
== END 2024-04-20 14:17 | disposition home or self-care (01) ==
LOC: VM.ED 11:12
DX: N30.01 Acute cystitis with hematuria (principal); I10 Essential (primary) hypertension; E11.40 Type 2 diabetes mellitus with diabetic neuropathy, unspecified; E78.00 Pure hypercholesterolemia, unspecified; M19.90 Unspecified osteoarthritis, unspecified site; J44.9 Chronic obstructive pulmonary disease, unspecified; Z88.8 Allergy status to other drugs, medicaments and biological substances; Z79.899 Other long term (current) drug therapy; Z90.49 Acquired absence of other specified parts of digestive tract; Z79.84 Long term (current) use of oral hypoglycemic drugs
CPT/HCPCS: 74176; 80053; 81001; 83605; 85025; 86140; 87086; 87088; 87186; 96361; 96374; 96375; 99284; 99284-25; A9270-GY; J0696; J1885; J7030

== ENCOUNTER 2024-04-23 19:08 | Emergency (ER) | payer MEDICARE, OTHER ==
[2024-04-23 19:30] LABS: BASOPHILS PERCENT AUTO 0.1 % (0.2-1.2); HEMATOCRIT 42.1 % (33.0-47.0); HEMOGLOBIN 13.6 g/dL (12.0-16.0); IMMATURE GRAN ABSOLUTE AUTO 0.02 x10^3/uL (0.00-0.07); LYMPHOCYTES ABSOLUTE AUTO 0.5 x10^3/uL (1.0-4.8); LYMPHOCYTES PERCENT AUTO 6.9 % (25.0-50.0); MEAN CORPUSCULAR HEMOGLOBIN 30.2 pg (26.0-32.0); MEAN CORPUSCULAR HGB CONC 32.3 g/dL (32.0-36.0); MEAN CORPUSCULAR VOLUME 93.6 fL (78.0-93.0); MONOCYTES ABSOLUTE AUTO 0.3 x10^3/uL (0.0-0.8); MONOCYTES PERCENT AUTO 3.6 % (2.0-11.0); NEUTROPHILS ABSOLUTE AUTO 6.7 x10^3/uL (1.8-7.7); NEUTROPHILS PERCENT AUTO 89.1 % (50.0-80.0); PLATELET COUNT,PLT 271 x10^3/uL (130-400); WHITE BLOOD CELL COUNT,WBC 7.5 x10^3/uL (4.0-10.0)
[2024-04-23] MEDS: diphenhydrAMINE 25 MG Cap PO ONE (19:42)
[2024-04-23 19:50] LABS: A/G RATIO 0.65; ALANINE AMINOTRANSFERASE,ALT 22 U/L (14-59); ALBUMIN 3.1 g/dL (3.4-5.0); ALKALINE PHOSPHATASE 81 U/L (46-116); ASPARTATE AMNIOTRANSFERASE,AST 19 U/L (15-37); BILIRUBIN TOTAL 0.3 mg/dL (0.2-1.0); BLOOD UREA NITROGEN,BUN 21 mg/dL (7-18); CALCIUM 8.4 mg/dL (8.5-10.1); CARBON DIOXIDE,CO2 23 mmol/L (21-32); CHLORIDE,CL 93 mmol/L (98-107); CREATININE 1.5 mg/dL (0.55-1.02); POTASSIUM,K 4.7 mmol/L (3.5-5.1); PROTEIN TOTAL,TP 7.9 g/dL (6.4-8.2); SODIUM,NA 130 mmol/L (136-145)
[2024-04-23 19:54] VITALS: BP 110/72; PULSE 98
[2024-04-23 19:58] LABS: ANION GAP 18.7 mmol/L (5-15)
[2024-04-23 20:00] LABS: ESTIMATED GFR 36 mL/min (>=60); GLUCOSE RANDOM 572 mg/dL (70-99)
[2024-04-23] MEDS ORDERED: Sodium Chloride 0.9% 10 ML Syringe FLUSH PRN (20:03)
[2024-04-23] MEDS ORDERED: 50% Dextrose in Water 50 ML Syringe IVPUSH PRN (20:03)
[2024-04-23] MEDS ORDERED: Glucagon,Human Recombinant 1 MG Vial IM PRN (20:03)
[2024-04-23] MEDS: Sodium Chloride 0.9% 1,000 ML IV ONE (20:10)
[2024-04-23] MEDS: Insulin Regular, Human 100 Units/ML 10 ML Vial SUBCUT ONE ×2 (20:21→21:11)
== END 2024-04-23 21:28 | disposition home or self-care (01) ==
LOC: VM.ED 19:08
DX: R42 Dizziness and giddiness (principal); E11.65 Type 2 diabetes mellitus with hyperglycemia; E87.1 Hypo-osmolality and hyponatremia; I10 Essential (primary) hypertension; E78.00 Pure hypercholesterolemia, unspecified; E11.40 Type 2 diabetes mellitus with diabetic neuropathy, unspecified; Z90.49 Acquired absence of other specified parts of digestive tract; Z79.899 Other long term (current) drug therapy; Z79.84 Long term (current) use of oral hypoglycemic drugs; Z88.8 Allergy status to other drugs, medicaments and biological substances
CPT/HCPCS: 36415; 70450; 80053; 82947; 85025; 96360; 99284; A9270; J7030

== ENCOUNTER 2024-06-30 04:38 | Emergency (ER) | payer MEDICARE, OTHER ==
[2024-06-30 05:17] VITALS: BP 141/82; PULSE 107
[2024-06-30] MEDS: Lidocaine 2% Viscous Solution 15 ML UD PO ONE (05:22)
[2024-06-30] MEDS: cefTRIAXone 1 GM, Lidocaine 1% 2.1 ML IM ONE (05:22)
[2024-06-30] MEDS: Take Home: Amoxicillin 875 MG Tab, 2 Tab Pack PO ONE (05:23)
[2024-06-30] MEDS: Lidocaine 2% Viscous Solution 15 ML UD PO STA (05:23)
== END 2024-06-30 05:28 | disposition home or self-care (01) ==
LOC: SUPCPDRO 04:38 → VM.ED 04:38
DX: J02.9 Acute pharyngitis, unspecified (principal); I10 Essential (primary) hypertension; E78.00 Pure hypercholesterolemia, unspecified; J44.9 Chronic obstructive pulmonary disease, unspecified; K21.9 Gastro-esophageal reflux disease without esophagitis; E11.42 Type 2 diabetes mellitus with diabetic polyneuropathy; Z90.49 Acquired absence of other specified parts of digestive tract; Z88.8 Allergy status to other drugs, medicaments and biological substances; Z79.84 Long term (current) use of oral hypoglycemic drugs; Z79.51 Long term (current) use of inhaled steroids; Z79.899 Other long term (current) drug therapy
CPT/HCPCS: 96372; 99283; A9270-GY; J0696; J2003